=== PATIENT | female | born 1965 | race Caucasian/White ===

== ENCOUNTER 2018-12-28 08:08 | Day surgery (SDC) | payer OTHER ==
[~2018-12-28] VITALS: Ht 152.4 cm; Wt 72.6 kg
[2018-12-28 08:21] VITALS: BP 152/70
[2018-12-28 11:43] VITALS: BP 131/74
== END 2018-12-28 11:20 | disposition home or self-care (01) ==
LOC: GI 08:08 → OR 09:30 → GI 11:20
DX: K59.09 Other constipation (principal); K57.30 Diverticulosis of large intestine without perforation or abscess without bleeding; E78.00 Pure hypercholesterolemia, unspecified; Z98.51 Tubal ligation status; Z98.890 Other specified postprocedural states
CPT/HCPCS: 45378; J1200; J1610; J2250; J2310; J3010; J3490